=== PATIENT | female | born 1965 | race Caucasian/White ===

== ENCOUNTER 2018-01-27 09:17 | Emergency (ER) | payer MEDICAID, OTHER ==
[~2018-01-27] VITALS: Ht 170.2 cm; Wt 86.3 kg
[~2018-01-27 09:17] MED LIST: ASPI-1264 PO; SYN0.088T PO
[2018-01-27 09:21] VITALS: BP 119/79
[2018-01-27] MEDS ORDERED: LEVO125T8 PO (10:25)
== END 2018-01-27 10:34 | disposition home or self-care (01) ==
LOC: ER 09:19
DX: M54.2 Cervicalgia (principal); R20.2 Paresthesia of skin; Z90.710 Acquired absence of both cervix and uterus; Z98.890 Other specified postprocedural states; Z79.899 Other long term (current) drug therapy; Z79.82 Long term (current) use of aspirin
CPT/HCPCS: 99283

== ENCOUNTER 2020-10-27 12:13 | Inpatient (IN) | payer MEDICAID, OTHER ==
[~2020-10-27] VITALS: Ht 170.2 cm; Wt 84.1 kg
[~2020-10-27 12:13] MED LIST changes: +LEVO125T8 PO
[2020-10-27] MEDS ORDERED: normal saline 1000ml 1,000 ML IV ONE (12:55)
[2020-10-27 13:52] LABS: BASOPHILS % (AUTO) 0.3 % (0-1); EOSINOPHILS % (AUTO) 0.1 % (0-6); HEMATOCRIT 45.8 % (35.0-45.0); HEMOGLOBIN 14.9 g/dl (12.0-16.0); LYMPHOCYTES # (AUTO) 1.3 X10'3 (1.1-4.8); LYMPHOCYTES % (AUTO) 32.5 % (21-51); MEAN CORPUSCULAR HEMOGLOBIN 27.6 PG (27.0-31.0); MEAN CORPUSCULAR HGB CONC 32.6 g/dL (33.0-36.5); MEAN CORPUSCULAR VOLUME 84.7 FL (78-98); MEAN PLATELET VOLUME 9.5 FL (7.4-10.4); MONOCYTES # (AUTO) 0.2 X10'3 (0-0.9); MONOCYTES % (AUTO) 4.2 % (2-12); NEUTROPHILS # (AUTO) 2.6 X10'3 (1.8-7.7); NEUTROPHILS % (AUTO) 62.9 % (42-75); PLATELET COUNT 162 X10'3 (140-440); RED BLOOD COUNT 5.41 X10'6 (4.20-5.60); RED CELL DISTRIBUTION WIDTH 14.1 % (11.5-14.5); WHITE BLOOD COUNT 4.1 X10'3 (4.5-11.0)
[2020-10-27 14:03] LABS: D-DIMER 0.45 MG/L FEU (0-0.50)
[2020-10-27 14:08] LABS: ALANINE AMINOTRANSFERASE 109 U/L (12-78); ALBUMIN 3.4 G/DL (3.4-5.0); ALBUMIN/GLOBULIN RATIO 0.9 (1.1-1.5); ALKALINE PHOSPHATASE 84 IU/L (46-116); ANION GAP 12 (8-16); ASPARTATE AMINO TRANSFERASE 97 U/L (10-37); BILIRUBIN,TOTAL 0.3 MG/DL (0.1-1.0); BLOOD UREA NITROGEN 11 MG/DL (7-18); BUN/CREATININE RATIO 15.5 (6.6-38.0); CALCIUM 7.9 MG/DL (8.5-10.1); CHLORIDE 106 MMOL/L (99-107); CREATININE 0.71 MG/DL (0.40-0.90); GLUCOSE 100 MG/DL (70-104); POTASSIUM 3.3 MMOL/L (3.5-5.1); SODIUM 143 MMOL/L (135-145); TOTAL CARBON DIOXIDE 24.6 MMOL/L (24-32); eGFR 85 ML/MIN
[2020-10-27] MEDS ORDERED: POTASSIUM BICARB 20meq eff tab 20 MEQ TABLET.EFF PO ONE (14:30)
[2020-10-27] MEDS ORDERED: dexamethasone sod phosphate 10mg/ml inj IV STA (16:34)
[2020-10-27 16:59] LABS: C-REACTIVE PROTEIN 0.87 MG/DL (0.0-0.5); LACTATE DEHYDROGENASE 386 U/L (81-234)
[2020-10-27] MEDS ORDERED: temazepam 15mg capsule PO PRN (21:00)
[2020-10-27] MEDS ORDERED: diphenhydrAMINE 50 mg/ml inj IV PRN (21:55)
[2020-10-27] MEDS ORDERED: acetaminophen 325mg tablet PO PRN ×2 (21:55)
[2020-10-27] MEDS ORDERED: bisacodyl 10mg suppository rectal RC PRN (21:55)
[2020-10-27] MEDS ORDERED: potassium Cl 40MEQ/1/2NS 520ml 520 ML IV PRN ×2 (21:55)
[2020-10-27] MEDS ORDERED: diphenhydrAMINE 25mg capsule PO PRN (21:55)
[2020-10-27] MEDS ORDERED: morphine 2 MG/ML inj. syringe IV PRN ×2 (21:55)
[2020-10-27] MEDS ORDERED: ondansetron/PF 4mg/2ml inj IV PRN (21:55)
[2020-10-27] MEDS ORDERED: potassium Cl 20 mEq SR tablet PO PRN ×2 (21:55)
[2020-10-27] MEDS ORDERED: mag hydrox/Alum hydrox/simeth 30ml oral suspension PO PRN (21:55)
[2020-10-27] MEDS ORDERED: HYDROcodone/acetaminophen 5mg/325mg tablet PO PRN (21:55)
[2020-10-27] MEDS ORDERED: HYDROcodone/acetaminophen 10/325mg tab PO PRN (21:55)
[2020-10-27] MEDS ORDERED: acetaminophen 650mg rectal suppository RC PRN (21:55)
[2020-10-27] MEDS ORDERED: HYDROmorphone inj. 0.5 MG/0.5 ML DISP.SYRIN IV PRN (21:55)
[2020-10-27] MEDS ORDERED: magnesium hydroxide 30ml (MOM) UD suspension PO PRN (21:55)
[2020-10-27] MEDS ORDERED: ondansetron 4mg rapidly disintigrating tab PO PRN (21:55)
[2020-10-27] MEDS ORDERED: ALBUTEROL INHALER 1 PUFF/90 MCG INHALER IH PRN (22:00)
[2020-10-27 22:20] LABS: HEMOGLOBIN A1C 6.2 % (4.5-6.2)
[2020-10-27 22:27] LABS: MAGNESIUM 2.2 MG/DL (1.5-2.4); PHOSPHORUS 2.5 MG/DL (2.3-4.5)
[2020-10-28] MEDS: potassium Cl 20mEq in NS 1,000 ML IV SCH ×4 (01:58→21:45)
[2020-10-28 04:23] LABS: CLARITY,URINE CLEAR (Clear); COLOR,URINE YELLOW (Yellow); GLUCOSE, URINE NEGATIVE (Neg); KETONES,URINE >=80 mg/dl (Neg); LEUKOCYTE ESTERASE ,URINE TRACE (Neg); NITRITES, URINE NEGATIVE (Neg); OCCULT BLOOD,URINE NEGATIVE (Neg); PROTEIN,URINE TRACE mg/dl (Neg)
[2020-10-28 04:27] LABS: UA COLLECTION TYPE CLN CATCH MIDSTREAM
[2020-10-28 04:31] LABS: BACTERIA,URINE NONE SEEN /HPF (Neg); MUCUS STRANDS MODERATE /LPF (Neg); PARTIAL THROMBOPLASTIN TIME 28 SECONDS (22-32); RBC,URINE 0-2 /HPF (0-2); SQUAMOUS EPITHELIAL CELL,UR FEW /LPF (FEW); WBC,URINE 0-4 /HPF (0-4)
[2020-10-28 04:37] LABS: ALANINE AMINOTRANSFERASE 104 U/L (12-78); ALBUMIN 3.2 G/DL (3.4-5.0); ALKALINE PHOSPHATASE 80 IU/L (46-116); ANION GAP 11 (8-16); ASPARTATE AMINO TRANSFERASE 93 U/L (10-37); BILIRUBIN,TOTAL 0.4 MG/DL (0.1-1.0); BLOOD UREA NITROGEN 10 MG/DL (7-18); BUN/CREATININE RATIO 13.9 (6.6-38.0); CALCIUM 7.6 MG/DL (8.5-10.1); CHLORIDE 107 MMOL/L (99-107); CHOLESTEROL 113 MG/DL (0-200); CREATININE 0.72 MG/DL (0.40-0.90); GLUCOSE 116 MG/DL (70-104); HDL CHOLESTEROL 38 MG/DL (35-60); LDL CHOLESTEROL 56 MG/DL (50-100); POTASSIUM 3.6 MMOL/L (3.5-5.1); SODIUM 143 MMOL/L (135-145); TOTAL CARBON DIOXIDE 24.7 MMOL/L (24-32); TOTAL PROTEIN 6.4 G/DL (6.4-8.2); TRIGLYCERIDES 106 MG/DL (20-135); eGFR 84 ML/MIN
[2020-10-28] MEDS: K and/or MAG REPLACEMENT MC SCH ×2 (08:00→19:05)
[2020-10-28] MEDS: pantoprazole 40mg Tablet.DR PO SCH (09:07)
[2020-10-28] MEDS: levoTHYROXINE 125mcg tablet PO SCH (09:07)
[2020-10-28] MEDS: docusate sod 100mg capsule PO SCH ×2 (09:07→20:00)
[2020-10-28] MEDS: enoxaparin 60mg/0.6ml syringe SUBCUT SCH ×2 (09:08→20:01)
[2020-10-28] MEDS: azithromycin/NS 500mg/250ml 250 ML IV SCH (09:09)
[2020-10-28] MEDS: CefTRIAXone/D5W-Rocephin 1gm 50 ML IV SCH (09:09)
[2020-10-28 09:26] LABS: BASOPHILS % (AUTO) 0.3 % (0-1); EOSINOPHILS % (AUTO) 0 % (0-6); HEMATOCRIT 40.6 % (35.0-45.0); HEMOGLOBIN 13.5 g/dl (12.0-16.0); LYMPHOCYTES # (AUTO) 1.4 X10'3 (1.1-4.8); LYMPHOCYTES % (AUTO) 32.8 % (21-51); MEAN CORPUSCULAR HEMOGLOBIN 27.4 PG (27.0-31.0); MEAN CORPUSCULAR HGB CONC 33.1 g/dL (33.0-36.5); MEAN CORPUSCULAR VOLUME 82.7 FL (78-98); MEAN PLATELET VOLUME 9.3 FL (7.4-10.4); MONOCYTES # (AUTO) 0.3 X10'3 (0-0.9); MONOCYTES % (AUTO) 6.1 % (2-12); NEUTROPHILS # (AUTO) 2.6 X10'3 (1.8-7.7); NEUTROPHILS % (AUTO) 60.8 % (42-75); PLATELET COUNT 153 X10'3 (140-440); RED BLOOD COUNT 4.91 X10'6 (4.20-5.60); WHITE BLOOD COUNT 4.3 X10'3 (4.5-11.0)
[2020-10-28] MEDS: dexamethasone inj 6 MG in normal saline 50ml IV soln 50 ML IV SCH ×2 (10:30→20:01)
--- NOTE | 2020-10-29 01:14 | NUR ---
ASSUMED CARE OF PT WHO IS NOW SLEEPING WITH NO OBVIOUS SIGNS OF DISTRESS, HOOKED UP TO OXYGEN AT 4L NC. EVEN UNLABORED RESPIRATIONS
[2020-10-29] MEDS: K and/or MAG REPLACEMENT MC SCH ×2 (07:39→19:58)
[2020-10-29] MEDS: docusate sod 100mg capsule PO SCH ×2 (08:00→19:59)
[2020-10-29] MEDS: CefTRIAXone/D5W-Rocephin 1gm 50 ML IV SCH (08:00)
[2020-10-29] MEDS: pantoprazole 40mg Tablet.DR PO SCH (08:24)
[2020-10-29] MEDS: dexamethasone inj 6 MG in normal saline 50ml IV soln 50 ML IV SCH ×2 (08:25→19:58)
[2020-10-29] MEDS: potassium Cl 20mEq in NS 1,000 ML IV SCH ×2 (08:52→19:58)
[2020-10-29] MEDS: levoTHYROXINE 125mcg tablet PO SCH (09:02)
[2020-10-29 10:00] LABS: BASOPHILS % (AUTO) 0.2 % (0-1); EOSINOPHILS % (AUTO) 0 % (0-6); HEMATOCRIT 40.2 % (35.0-45.0); HEMOGLOBIN 13.1 g/dl (12.0-16.0); LYMPHOCYTES # (AUTO) 0.9 X10'3 (1.1-4.8); LYMPHOCYTES % (AUTO) 23.1 % (21-51); MEAN CORPUSCULAR HGB CONC 32.5 g/dL (33.0-36.5); MEAN CORPUSCULAR VOLUME 86.1 FL (78-98); MEAN PLATELET VOLUME 9.6 FL (7.4-10.4); MONOCYTES # (AUTO) 0.3 X10'3 (0-0.9); MONOCYTES % (AUTO) 7.6 % (2-12); NEUTROPHILS # (AUTO) 2.7 X10'3 (1.8-7.7); NEUTROPHILS % (AUTO) 69.1 % (42-75); PLATELET COUNT 171 X10'3 (140-440); RED BLOOD COUNT 4.67 X10'6 (4.20-5.60); RED CELL DISTRIBUTION WIDTH 14.5 % (11.5-14.5); WHITE BLOOD COUNT 3.9 X10'3 (4.5-11.0)
[2020-10-29 10:10] LABS: ALANINE AMINOTRANSFERASE 132 U/L (12-78); ALBUMIN 2.9 G/DL (3.4-5.0); ALBUMIN/GLOBULIN RATIO 0.9 (1.1-1.5); ALKALINE PHOSPHATASE 91 IU/L (46-116); ANION GAP 12 (8-16); ASPARTATE AMINO TRANSFERASE 89 U/L (10-37); BILIRUBIN,TOTAL 0.3 MG/DL (0.1-1.0); BLOOD UREA NITROGEN 11 MG/DL (7-18); BUN/CREATININE RATIO 13.3 (6.6-38.0); CALCIUM 8.2 MG/DL (8.5-10.1); CHLORIDE 113 MMOL/L (99-107); CREATININE 0.83 MG/DL (0.40-0.90); GLUCOSE 171 MG/DL (70-104); POTASSIUM 4.3 MMOL/L (3.5-5.1); SODIUM 146 MMOL/L (135-145); TOTAL CARBON DIOXIDE 21.3 MMOL/L (24-32); TOTAL PROTEIN 6.3 G/DL (6.4-8.2); eGFR 71 ML/MIN
[2020-10-29] MEDS: enoxaparin 60mg/0.6ml syringe SUBCUT SCH ×2 (11:12→19:58)
[2020-10-29] MEDS: azithromycin/NS 500mg/250ml 250 ML IV SCH (11:54)
[2020-10-29] MEDS ORDERED: METH4TAB81 PO (15:39)
[2020-10-29] MEDS ORDERED: AZIT500T9 PO (15:39)
--- NOTE | 2020-10-29 17:07 | NUR ---
RECEIVED REPORT FROM LILIA MANLEY IN ER. PT GOING TO [id number]
[2020-10-29 17:30] VITALS: BP 94/40
--- NOTE | 2020-10-29 18:21 | NUR ---
PT ARRIVED ON FLOOR AT 171
--- NOTE | 2020-10-29 18:55 | NUR ---
Problems reprioritized. Patient report given, questions answered & plan of care reviewed with LILIA QUINTERO.
[2020-10-29 20:36] VITALS: BP 112/63
--- NOTE | 2020-10-29 20:38 | NUR ---
verified with pharmacy that decadron IV piggyback med is compatible with KCl fluids-they said yes.
[2020-10-29 22:00] VITALS: BP 96/45
[2020-10-30 02:00] VITALS: BP 106/45
[2020-10-30 06:00] VITALS: BP 105/58
[2020-10-30 06:35] LABS: BASOPHILS % (AUTO) 0.1 % (0-1); EOSINOPHILS % (AUTO) 0 % (0-6); HEMATOCRIT 38.5 % (35.0-45.0); HEMOGLOBIN 12.5 g/dl (12.0-16.0); LYMPHOCYTES # (AUTO) 0.8 X10'3 (1.1-4.8); LYMPHOCYTES % (AUTO) 16.2 % (21-51); MEAN CORPUSCULAR HEMOGLOBIN 27.5 PG (27.0-31.0); MEAN CORPUSCULAR HGB CONC 32.5 g/dL (33.0-36.5); MEAN CORPUSCULAR VOLUME 84.5 FL (78-98); MEAN PLATELET VOLUME 9.6 FL (7.4-10.4); MONOCYTES # (AUTO) 0.3 X10'3 (0-0.9); MONOCYTES % (AUTO) 6.8 % (2-12); NEUTROPHILS # (AUTO) 3.7 X10'3 (1.8-7.7); NEUTROPHILS % (AUTO) 76.9 % (42-75); PLATELET COUNT 196 X10'3 (140-440); RED BLOOD COUNT 4.55 X10'6 (4.20-5.60); RED CELL DISTRIBUTION WIDTH 14.2 % (11.5-14.5); WHITE BLOOD COUNT 4.9 X10'3 (4.5-11.0)
[2020-10-30 06:48] LABS: ALANINE AMINOTRANSFERASE 110 U/L (12-78); ALBUMIN 2.9 G/DL (3.4-5.0); ALBUMIN/GLOBULIN RATIO 0.9 (1.1-1.5); ALKALINE PHOSPHATASE 87 IU/L (46-116); ANION GAP 9 (8-16); ASPARTATE AMINO TRANSFERASE 49 U/L (10-37); BILIRUBIN,TOTAL 0.2 MG/DL (0.1-1.0); BLOOD UREA NITROGEN 15 MG/DL (7-18); CALCIUM 8.1 MG/DL (8.5-10.1); CHLORIDE 114 MMOL/L (99-107); CREATININE 0.75 MG/DL (0.40-0.90); GLUCOSE 173 MG/DL (70-104); POTASSIUM 3.9 MMOL/L (3.5-5.1); SODIUM 146 MMOL/L (135-145); TOTAL CARBON DIOXIDE 22.6 MMOL/L (24-32); TOTAL PROTEIN 6.1 G/DL (6.4-8.2); eGFR 80 ML/MIN
--- NOTE | 2020-10-30 06:49 | NUR ---
Patient in room ORTHO 4009. I have received report from LILIA bonilla and had the opportunity to ask questions and assume patient care.
[2020-10-30] MEDS: pantoprazole 40mg Tablet.DR PO SCH (07:14)
[2020-10-30] MEDS: docusate sod 100mg capsule PO SCH (07:14)
[2020-10-30] MEDS: levoTHYROXINE 125mcg tablet PO SCH (07:14)
[2020-10-30] MEDS: CefTRIAXone/D5W-Rocephin 1gm 50 ML IV SCH (07:15)
[2020-10-30] MEDS: dexamethasone inj 6 MG in normal saline 50ml IV soln 50 ML IV SCH (07:15)
[2020-10-30] MEDS: enoxaparin 60mg/0.6ml syringe SUBCUT SCH (07:15)
[2020-10-30] MEDS: K and/or MAG REPLACEMENT MC SCH (08:00)
[2020-10-30 10:00] VITALS: BP 111/50
--- NOTE | 2020-10-30 11:46 | NUR ---
O2 Sat at rest on room air:93% If below 89%: Recovery O2 Sat at rest on ___LPM:___%:___% via (mask/nasal cannula, etc..) No further documentation is necessary. If O2 Sat did not drop below 89% on room air,ambulate patient on room air. O2 Sat while ambulating on room air:__92_% Recovery O2 Sat while ambulating on ___LPM:___% No further documentation is necessary. If patient does not drop below 89% while ambulating, he/she does not qualify for home O2.
--- NOTE | 2020-10-30 13:00 | NUR ---
D/C INSTRUCTIONS REVIEWED W/PT, F/U APTS (PT TO MAKE) W/ [facility].REVIEWED MEDICATIONS, TO BE P/U AT [facility] [place]. TELE REMOVED. 20G REMOVED FROM LEFT HAND, TIP INTACT W/NO COMPLICATIONS. PT LEFT IN STABLE CONDITION.
== END 2020-10-30 13:03 | disposition home or self-care (01) | DRG 137 ==
LOC: ER 12:13 → UNDOADMIN 21:57 → ED HOLD 21:57 → ORTHO 4S 10-29 17:15
PROVIDERS: ADMIT Family Medicine; ATTEND Internal Medicine
DX: U07.1 COVID-19 (principal); J96.01 Acute respiratory failure with hypoxia; J12.82 Pneumonia due to coronavirus disease 2019; E86.1 Hypovolemia; Z60.2 Problems related to living alone; R00.0 Tachycardia, unspecified; E87.6 Hypokalemia; Z78.9 Other specified health status; Z85.850 Personal history of malignant neoplasm of thyroid; Z90.710 Acquired absence of both cervix and uterus; Z79.890 Hormone replacement therapy
CPT/HCPCS: 36415; 71045; 80053; 80061; 81001; 83036; 83615; 83735; 83880; 84100; 84145; 84443; 85025; 85379; 85610; 85730; 86140; 87081; 87088; 87635; 94760; 96374; 99285; C9803; G0378; J0456; J0696; J1100; J1650; J3480; J7030

== ENCOUNTER 2024-07-27 06:38 | Day surgery (SDC) | payer MEDICARE, MEDICAID ==
--- NOTE | 2024-07-24 10:48 | ELECTROCARDIOGRAPH REPORT ---
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 Laura Richards Measurements Intervals [place] Rate: 71 P: 24 SC: 159 QRS: -8 QRSD: 99 T: 44 QT: 401 QTc: 436 Interpretive Statements Sinus rhythm Electronically Signed On 07-24-2024 20:57:[address] Laura Richards Please click the below link to view image of tracing.
[2024-07-24 11:02] LABS: BILIRUBIN,URINE NEGATIVE (Neg); CLARITY,URINE SLIGHTLY CLOUDY (Clear); COLOR,URINE YELLOW (Yellow); GLUCOSE, URINE 250 mg/dl (Neg); KETONES,URINE NEGATIVE (Neg); LEUKOCYTE ESTERASE ,URINE NEGATIVE (Neg); NITRITES, URINE POSITIVE (Neg); OCCULT BLOOD,URINE NEGATIVE (Neg); PROTEIN,URINE NEGATIVE (Neg); UROBILINOGEN,URINE 0.2 E.U/dL (0.2-1.0)
[2024-07-24 11:04] LABS: BASOPHILS % (AUTO) 0.5 % (0-1); EOSINOPHILS # (AUTO) 0.3 X10'3 (0-0.9); EOSINOPHILS % (AUTO) 3.8 % (0-6); LYMPHOCYTES # (AUTO) 2.3 X10'3 (1.1-4.8); LYMPHOCYTES % (AUTO) 27.7 % (21-51); MEAN CORPUSCULAR HEMOGLOBIN 26.7 PG (27.0-31.0); MEAN CORPUSCULAR HGB CONC 32.9 g/dL (33.0-36.5); MEAN PLATELET VOLUME 8.4 FL (7.4-10.4); MONOCYTES # (AUTO) 0.7 X10'3 (0-0.9); PRE OP HEMATOCRIT 40.8 % (35.0-45.0); PRE OP HEMOGLOBIN 13.4 g/dL (12.0-16.0); PRE OP PLATELET COUNT 325 X10'3 (140-440); PRE OP WHITE BLOOD COUNT 8.4 10'3 (4.8-10.8); RED BLOOD COUNT 5.03 X10'6 (4.20-5.60)
[2024-07-24 11:05] LABS: UA COLLECTION TYPE CLN CATCH MIDSTREAM
[2024-07-24 11:09] LABS: MUCUS STRANDS FEW /LPF (Neg); SQUAMOUS EPITHELIAL CELL,UR FEW /LPF (FEW)
[2024-07-24 11:11] LABS: BACTERIA,URINE 2+ /HPF (Neg); RBC,URINE 0-2 /HPF (0-2)
[2024-07-24 11:26] LABS: ALBUMIN 3.3 G/DL (3.4-5.0); ALKALINE PHOSPHATASE 115 IU/L (46-116); BLOOD UREA NITROGEN 17 MG/DL (7-18); BUN/CREATININE RATIO 25.8 (10.0-20.0); CALCIUM 8.4 MG/DL (8.5-10.1); CHLORIDE 107 MMOL/L (99-107); CREATININE 0.66 MG/DL (0.40-0.90); PRE OP ALT 24 U/L (30-65); PRE OP ANION GAP 6 (8-16); PRE OP AST 10 U/L (10-37); PRE OP BILIRUB, TOTAL 0.3 MG/DL (0.0-1.0); PRE OP GLUCOSE 180 MG/DL (70-104); PRE OP POTASSIUM 3.8 MMOL/L (3.4-5.1); PRE OP SODIUM 142 MMOL/L (135-145); TOTAL CARBON DIOXIDE 28.7 MMOL/L (24-32); TOTAL PROTEIN 6.6 G/DL (6.4-8.2); eGFR > 90 ML/MIN
[2024-07-27] VITALS (9 sets, daily range): BP systolic 111–136; BP diastolic 65–82; PULSE 65–91; RESP 14–17; TEMP 97.9; O2SAT 92–96
[~2024-07-27] VITALS: Ht 165.1 cm; Wt 104.3 kg
[2024-07-27] MEDS: ceFAZolin 2gm/dext,iso 50mL 50 ML IV ONE (05:30)
[~2024-07-27 06:38] MED LIST changes: -ASPI-1264 PO; +ASPI-1397 PO; +BUPIVAcaine 2.5mg/ml inj 50ml vial (contains preservative) ONE; +CARB200T8 PO; +ERGO500041 PO; +HYDR-3964 PO; +IBUP-1985 PO; -LEVO125T8 PO; +LEVO150T8 PO; +SERT-434 PO; -SYN0.088T PO; +[UNRECOGNIZED DRUG - REMARK]; +bacitracin 15gm ointment TP ONE
[2024-07-27] MEDS ORDERED: proCHLORperazine 10 MG/2 ml inj IV PRN (08:00)
[2024-07-27] MEDS ORDERED: meperidine/PF 25mg/ml syringe IV PRN (08:00)
[2024-07-27] MEDS ORDERED: morphine 4 MG/ML inj SYRINge IV PRN (08:00)
[2024-07-27] MEDS ORDERED: morphine 2 MG/ML inj. syringe IV PRN (08:00)
[2024-07-27] MEDS ORDERED: hydrALAZINE 20mg/ml inj. IV PRN (08:00)
[2024-07-27] MEDS ORDERED: labetalol 20mg/4ml (5mg/ml) syringe IV PRN (08:00)
[2024-07-27] MEDS ORDERED: ringers solution, lacted 1,000 ML IV SCH (08:00)
[2024-07-27] MEDS ORDERED: HYDROmorphone/PF 0.2 MG/ML SYRINGE IV PRN (08:00)
[2024-07-27] MEDS ORDERED: ondansetron/PF 4mg/2ml inj IV PRN (08:00)
[2024-07-27] MEDS: famotidine 20mg tablet PO ONE (08:09)
[2024-07-27] MEDS: ringers solution, lacted 1,000 ML IV SCH (08:10)
[2024-07-27] MEDS ORDERED: sevoflurane 250ml liquid IH ONE (09:00)
[2024-07-27] MEDS ORDERED: fentaNYL/PF 50MCG/1 ML 2ML syringe ONE ×2 (09:13→09:49)
[2024-07-27] MEDS ORDERED: midazolam 1 mg/ML 2ml injection ONE (09:48)
[2024-07-27] MEDS ORDERED: ROPIVAcaine 0.5% (5mg/ml) 30ml vial ONE (09:49)
[2024-07-27] MEDS ORDERED: propofol inj 20 ML IV ONE ×2 (09:49)
[2024-07-27] MEDS ORDERED: dexamethasone sod phosphate 4mg/ml inj. ONE (09:49)
[2024-07-27] MEDS ORDERED: 0.9 % SODIUM CHLORIDE 10 ML VIAL ONE (09:49)
[2024-07-27] MEDS ORDERED: LIDOcaine 2% (20mg/ml) 5ml vial ONE (09:49)
[2024-07-27] MEDS ORDERED: ondansetron/PF 4mg/2ml inj ONE (09:56)
[2024-07-27] MEDS: bacitracin 15gm ointment TP ONE (10:00)
[2024-07-27] MEDS: acetaminophen 1,000mg/100ml IV 100 ML IV PRN (10:32)
[2024-07-27] MEDS: HYDROmorphone/PF 0.2 MG/ML SYRINGE IV PRN (10:32)
[2024-07-27] MEDS: HYDROcodone/acetaminophen 5mg/325mg tablet PO ONE (10:45)
== END 2024-07-27 11:20 | disposition home or self-care (01) ==
LOC: PAS 06:38
PROVIDERS: ATTEND Podiatrist Foot & Ankle Surgery
DX: M72.2 Plantar fascial fibromatosis (principal); M21.6X2 Other acquired deformities of left foot; J44.9 Chronic obstructive pulmonary disease, unspecified; G47.33 Obstructive sleep apnea (adult) (pediatric); E11.9 Type 2 diabetes mellitus without complications; F41.9 Anxiety disorder, unspecified; G47.30 Sleep apnea, unspecified; Z98.890 Other specified postprocedural states; Z79.899 Other long term (current) drug therapy; Z90.710 Acquired absence of both cervix and uterus; G89.18 Other acute postprocedural pain
CPT/HCPCS: 27687; 28060; 36415; 64447; 64450; 76942; 80053; 81001; 82948; 85025; 87077; 87088; 87186; 93005; A4215; A4615; A4618; A6223; A6402; A6449; A7000; J0131; J1100; J1171; J2003; J2250; J2405; J2704; J2795; J3010; J7030; J7120; L4360; Z7506; Z7508; Z7512; Z7610; J3490